=== PATIENT | female | born 1965 | race Caucasian/White ===

== ENCOUNTER 2019-03-11 00:16 | Emergency (ER) | payer MEDICAID, OTHER ==
[~2019-03-11] VITALS: Ht 165.1 cm; Wt 68.0 kg
[~2019-03-11 00:16] MED LIST: ALPR0.252 PO; IBUP-24 PO; ZOL50T PO
[2019-03-11 01:04] VITALS: BP 107/65
[2019-03-11] MEDS ORDERED: LORazepam 0.5 MG tablet PO PRN (01:20)
== END 2019-03-11 01:45 | disposition home or self-care (01) ==
LOC: ER 00:17
DX: F32.9 Major depressive disorder, single episode, unspecified (principal); F41.9 Anxiety disorder, unspecified; Z98.890 Other specified postprocedural states; Z88.0 Allergy status to penicillin; Z88.5 Allergy status to narcotic agent; Z88.1 Allergy status to other antibiotic agents; Z88.8 Allergy status to other drugs, medicaments and biological substances; Z79.899 Other long term (current) drug therapy
CPT/HCPCS: 99284